=== PATIENT | male | born 1965 | race Caucasian/White ===

== ENCOUNTER 2020-03-03 07:48 | Day surgery (SDC) | payer OTHER ==
[~2020-03-03] VITALS: Ht 170.2 cm; Wt 116.5 kg
[~2020-03-03 07:48] MED LIST: APIX5TAB PO; HYDR-3240 PO; METO-93 PO; VALSARTAN/HCTZ PO
[2020-03-03] MEDS ORDERED: ACETAMINOPHEN 500 MG TABLET PO ONE (08:00)
[2020-03-03] MEDS ORDERED: GABAPENTIN 300 MG CAPSULE PO ONE (08:00)
[2020-03-03] MEDS ORDERED: CHLORHEXIDINE 15 ML UDC MM STA (08:03)
[2020-03-03 08:21] VITALS: BP 119/84
[2020-03-03] MEDS ORDERED: LACTATED RINGERS 1,000 ML IV SCH (08:44)
[2020-03-03] MEDS ORDERED: MIDAZOLAM 1 MG/ML, 2ML ONE (09:14)
[2020-03-03] MEDS ORDERED: FENTANYL PF 250 MCG/5ML ONE ×2 (09:14→10:38)
[2020-03-03] MEDS ORDERED: ROPIvacaine/PF 0.2%, 20 ML ONE (09:17)
[2020-03-03] MEDS ORDERED: PROPOFOL 10 MG/ML, 20ML ONE (09:17)
[2020-03-03] MEDS ORDERED: GLYCOPYRROLATE 0.2MG/1ML, 5ML ONE (09:17)
[2020-03-03] MEDS ORDERED: ROCURONIUM 10MG/ML,5ML ONE (09:17)
[2020-03-03] MEDS ORDERED: NEOSTIGMINE 1 MG/ML, 10ML ONE (09:17)
[2020-03-03] MEDS ORDERED: CEFAZOLIN 1,000 MG ONE (09:17)
[2020-03-03] MEDS ORDERED: HYDROcodone/APAP 5/325 TABLET PO SCH (09:30)
[2020-03-03] MEDS ORDERED: BUPIVACAINE/PF-EPI 0.5% 1:200K ONE (09:35)
[2020-03-03] MEDS ORDERED: LIDOCAINE/PF 1%-EPI 1:200K, 30 ML ONE (09:35)
[2020-03-03] MEDS ORDERED: HYDROmorphone 1 MG/ML, 1ML INJ IVPush PRN (10:00)
[2020-03-03] MEDS ORDERED: HALOPERIDOL 5 MG/ML IV PRN (10:00)
[2020-03-03] MEDS ORDERED: morphine SULFATE 10 MG/ML, 1ML IVPush PRN (10:00)
[2020-03-03] MEDS ORDERED: MEPERIDINE/PF 25MG/0.5ML IVPush PRN (10:00)
[2020-03-03] MEDS ORDERED: LABETALOL 5MG/ML, 20ML IV PRN (10:00)
[2020-03-03] MEDS ORDERED: FENTANYL PF 100 MCG/2ML IV PRN (10:00)
[2020-03-03] MEDS ORDERED: OXYcodone 5 MG/5 ML ORAL.SOL UDC PO PRN (10:00)
[2020-03-03] MEDS ORDERED: hydrALAzine 20 MG/ML, 1ML IV PRN (10:00)
[2020-03-03] MEDS ORDERED: PROMETHAZINE 25 MG/ML, 1ML IVPush PRN (10:00)
[2020-03-03] MEDS ORDERED: OXYcodone 5 MG/5 ML ORAL.SOL UDC ONE (11:35)
[2020-03-03] MEDS ORDERED: APIXABAN 5 MG TABLET PO SCH (21:00)
[2020-03-04] MEDS ORDERED: METOPROLOL SUCCINATE 50 MG TAB.ER.24H PO SCH (09:00)
== END 2020-03-03 14:10 | disposition home or self-care (01) ==
LOC: OUT 07:48
PROVIDERS: ATTEND Orthopaedic Surgery
DX: S83.512A Sprain of anterior cruciate ligament of left knee, initial encounter (principal); S83.212A Bucket-handle tear of medial meniscus, current injury, left knee, initial encounter; M94.262 Chondromalacia, left knee; M21.162 Varus deformity, not elsewhere classified, left knee; I48.91 Unspecified atrial fibrillation; I42.9 Cardiomyopathy, unspecified; I10 Essential (primary) hypertension; F32.9 Major depressive disorder, single episode, unspecified; Z79.01 Long term (current) use of anticoagulants; Z79.891 Long term (current) use of opiate analgesic; Z79.899 Other long term (current) drug therapy; W18.39XA Other fall on same level, initial encounter; Y93.89 Activity, other specified; Y92.89 Other specified places as the place of occurrence of the external cause; Y99.0 Civilian activity done for income or pay
CPT/HCPCS: 29881; 29888; 64447; C1713; C1762; J0690; J2250; J2704; J2710; J2795; J3010; J3490; J7120; U0001; 76000